=== PATIENT | male | born 1940 | race Caucasian/White ===

== ENCOUNTER 2018-01-11 10:48 | Outpatient (CLI) | payer OTHER | END 2018-01-11 10:57 | disposition home or self-care (01) | LOC: LAB 10:48 | DX: R97.21 Rising PSA following treatment for malignant neoplasm of prostate (principal) ==

== ENCOUNTER 2018-01-18 13:35 | Outpatient (CLI) | payer OTHER | END 2018-01-18 13:42 | disposition home or self-care (01) | LOC: LAB 13:35 | DX: R97.20 Elevated prostate specific antigen [PSA] (principal) ==

== ENCOUNTER → 2018-01-29 | Emergency (ER) | payer OTHER ==
[~2018-01-29] VITALS: Ht 195.6 cm; Wt 90.3 kg
[~2018-01-29] MED LIST: DICLOFENAC SODI50 MG PO; INDAPAMIDE1.25 MG PO; LEVAQUIN500 MG PO; TRANDOLAPRIL2 MG PO; ZOCOR5 MG
== END | disposition home or self-care (01) ==
LOC: ER 14:45
DX: M79.671 Pain in right foot (principal)

== ENCOUNTER 2018-03-04 07:08 | Outpatient (CLI) | payer OTHER | END 2018-03-04 07:27 | disposition home or self-care (01) | LOC: SONOGRAMA 07:08 | DX: R97.20 Elevated prostate specific antigen [PSA] (principal) ==

== ENCOUNTER 2018-03-15 09:02 | Outpatient (CLI) | payer OTHER | END 2018-03-15 09:13 | disposition home or self-care (01) | LOC: NUCLEAR 09:02 | DX: C61 Malignant neoplasm of prostate (principal) | CPT/HCPCS: 78306; 78320; A9503 ==

== ENCOUNTER → 2021-07-31 09:19 | Outpatient (CLI) | payer OTHER | END | disposition home or self-care (01) | LOC: LAB 09:19 | PROVIDERS: ATTEND Urology | DX: C61 Malignant neoplasm of prostate (principal) ==

== ENCOUNTER 2021-08-04 13:24 | Outpatient (CLI) | payer OTHER | END 2021-08-04 13:28 | disposition home or self-care (01) | LOC: TOM 13:24 | PROVIDERS: ATTEND Urology | DX: Q44.6 Cystic disease of liver (principal); R10.84 Generalized abdominal pain; N32.81 Overactive bladder; C61 Malignant neoplasm of prostate ==